=== PATIENT | male | born 1945 | race Caucasian/White ===

== ENCOUNTER → 2024-12-23 06:19 | Outpatient (REF) | payer OTHER, SELFPAY | LOC: RAD 06:19 | PROVIDERS: ATTENDING PHYSICIAN Physician Assistant Medical | DX: I73.9 Peripheral vascular disease, unspecified (principal); Z72.0 Tobacco use | CPT/HCPCS: 76770; 93922; 93925 ==

== ENCOUNTER → 2025-08-12 14:01 | Outpatient (REF) | payer OTHER, SELFPAY | LOC: RAD 14:01 | PROVIDERS: ATTENDING PHYSICIAN Physician Assistant Medical | DX: R31.0 Gross hematuria (principal) | CPT/HCPCS: 74178; Q9967 ==